=== PATIENT | male | born 1980 | race Caucasian/White ===

== ENCOUNTER 2022-03-21 09:48 | Emergency (ER) | payer BC, OTHER ==
[~2022-03-21 09:48] MED LIST: GLUCOPHAGE 500500 MG PO; LEVEMIR100 UNIT/1 SQ; LOSARTAN POTASS25 MG PO; LOVENOX SY40 MG/0.4 SQ; NOVOLIN 70100 UNIT/1 SQ; NOVOLOG 10100 UNITS1 SQ; PERCOCET 5-3251 EACH PO
[2022-03-21 10:43] LABS: HEMOGLOBIN 15.3 gm/dl (14.0-17.5); RED BLOOD COUNT 5.24 M/UL (4.20-5.50); WHITE BLOOD COUNT 8.1 K/UL (4.5-11.0)
[2022-03-21 11:15] LABS: BUN/CREATININE RATIO 29 (0-10)
[2022-03-21] MEDS ORDERED: ONDANSETRON ODT4 MG PO (13:29)
== END 2022-03-21 13:50 | disposition home or self-care (01) ==
LOC: ER1 09:48
PROVIDERS: Nurse Practitioner
DX: R10.11 Right upper quadrant pain (principal); E11.9 Type 2 diabetes mellitus without complications; E78.5 Hyperlipidemia, unspecified; I10 Essential (primary) hypertension; Z88.7 Allergy status to serum and vaccine; Z88.0 Allergy status to penicillin
CPT/HCPCS: 71045; 80053; 80076; 82550; 82553; 83605; 83690; 84484; 85025; 93005; 96374; 96375; 99284; J2270; J2405; Q9967

== ENCOUNTER → 2022-04-02 | Outpatient (CLI) | payer OTHER ==
[~2022-04-02] MED LIST changes: +ONDANSETRON ODT4 MG PO
== END ==
LOC: ECHO 09:00
DX: R07.9 Chest pain, unspecified (principal); I51.7 Cardiomegaly
CPT/HCPCS: ECHO; 78452; 93017; 93306; A9502; Q9957

== ENCOUNTER 2022-04-05 14:48 | Observation (INO) | payer OTHER ==
[~2022-04-05] VITALS: Ht 180.3 cm; Wt 141.1 kg
[~2022-04-05 14:48] MED LIST changes: -LOSARTAN POTASS25 MG PO; +LOSARTAN POTASS50 MG PO
[2022-04-05 15:51] LABS: HEMOGLOBIN 15.1 gm/dl (14.0-17.5); RED BLOOD COUNT 5.11 M/UL (4.20-5.50); WHITE BLOOD COUNT 7.9 K/UL (4.5-11.0)
[2022-04-05 16:17] LABS: BUN/CREATININE RATIO 30 (0-10)
[2022-04-06] MEDS ORDERED: CLINDAMYCIN HC300 MG PO (11:57)
[2022-04-06] MEDS ORDERED: HUMULIN R500 UNIT/1 SQ (11:58)
[2022-04-06] MEDS ORDERED: ROBAXIN 750 MG750 MG PO (11:58)
[2022-04-06] MEDS ORDERED: VITAMIN D325 MC6 PO (11:58)
[2022-04-06] MEDS ORDERED: ZOFRAN ODT 4 MG4 MG PO (11:58)
[2022-04-06] MEDS ORDERED: LORATADINE10 MG PO (11:59)
[2022-04-06] MEDS ORDERED: NESINA25 MG PO (11:59)
--- NOTE | 2022-04-06 15:57 | NUR ---
1455 PT BACK FROM [facility]. TR BAND IN TACT ON R WRIST WITH ARM BOARD. PT A/O. NO COMPLAINTS. SITE WNL. WCTM.
[2022-04-07 04:33] LABS: HEMOGLOBIN 15.3 gm/dl (14.0-17.5); RED BLOOD COUNT 5.25 M/UL (4.20-5.50); WHITE BLOOD COUNT 8.7 K/UL (4.5-11.0)
[2022-04-07 04:56] LABS: BUN/CREATININE RATIO 26 (0-10)
[2022-04-07] MEDS ORDERED: LIPITOR80 MG PO (14:29)
[2022-04-07] MEDS ORDERED: CARVEDILOL3.125 MG PO (14:29)
[2022-04-07] MEDS ORDERED: ENTRESTO 24 MG1 EACH PO (14:29)
== END 2022-04-07 15:25 | disposition home or self-care (01) ==
LOC: ER1 14:48 → CDU 22:32 → M/S 22:32
PROVIDERS: Emergency Medicine; Internal Medicine Infectious Disease; ADMIT Internal Medicine
PROC: 4A023N7 Measurement of Cardiac Sampling and Pressure, Left Heart, Percutaneous Approach (ICD-10-PCS; principal; 2022-04-06)
PROC: B2111ZZ Fluoroscopy of Multiple Coronary Arteries using Low Osmolar Contrast (ICD-10-PCS; 2022-04-06)
DX: R07.89 Other chest pain (principal); I25.10 Atherosclerotic heart disease of native coronary artery without angina pectoris; I10 Essential (primary) hypertension; I25.5 Ischemic cardiomyopathy; I49.3 Ventricular premature depolarization; I77.1 Stricture of artery; G61.0 Guillain-Barre syndrome; E78.5 Hyperlipidemia, unspecified; E11.9 Type 2 diabetes mellitus without complications; E66.9 Obesity, unspecified; Z68.41 Body mass index [BMI] 40.0-44.9, adult; Z88.0 Allergy status to penicillin; Z88.7 Allergy status to serum and vaccine; Z79.4 Long term (current) use of insulin; Z79.84 Long term (current) use of oral hypoglycemic drugs; Z79.899 Other long term (current) drug therapy; Z53.8 Procedure and treatment not carried out for other reasons
CPT/HCPCS: 36415; 71045; 80053; 80061; 82550; 82553; 83036; 84443; 84484; 85025; 85610; 85730; 93005; 96374; 99152; 99153; 99285; C1769; C1894; G0378; J0461; J1644; J2250; J3010; J7040; Q9967